=== PATIENT | female | born 1995 | race Caucasian/White ===

== ENCOUNTER 2021-09-04 15:00 | Outpatient (CLI) | payer BC, SELFPAY ==
--- NOTE | ~2021-09-04 | US_ITS ---
EXAMINATION: US OB follow up DATE: 09/04/2021 16:03 INDICATION: Encounter for supervision of normal . TECHNIQUE: Real-time ultrasound of the pelvis was performed. COMPARISON: None. FINDINGS: There is a single living fetus in breech presentation. The placenta is posterior. heart rate i s 141 beats per minute (bpm). The amniotic fluid volume is subjectively normal. The following biometric data were obtained: Biparietal diameter (BPD): 3.3 cm; head circumference (HC): 12.5 cm; abdominal circumference (AC): 10 .5 cm; femur length (FL): 2.1 cm. These measurements are concordant. Estimated weight is 153 g +/- 23 g, which correlates with 15th percentile when 02/13/22 is used as estimated date of delivery. As single measurements, these parameters are each equal to the following estimated gestational ages w ith ranges of +/- 2 standard deviations: BPD: 16 weeks 1 days (15 weeks 0 days - 17 weeks 2 days). HC: 16 weeks 2 days (15 weeks 1 days - 17 weeks 3 days). AC: 16 weeks 3 days (14 weeks 5 days - 18 weeks 0 days). FL: 16 weeks 2 days (14 weeks 6 days - 17 weeks 5 days). estimated gestational age based solely on measurements from this exam is 16 weeks 2 days +/- 1 weeks 1 days. IMPRESSION: 1. Single living fetus in breech presentation. 2. Estimated weight is 153 g +/- 23 g, which correlates with 15th percentile when 02/13/22 is u sed as estimated date of delivery. Reviewed, dictated and finalized at location A. NOLOGY SUPPORT ANALYST IMPRESSION: 1. Single living fetus in breech presentation. 2. Estimated weight is 153 g +/- 23 g, which correlates with 15th percen tile when 02/13/22 is used as estimated date of delivery.
== END 2021-09-04 15:01 | disposition home or self-care (01) ==
LOC: ANHIMG 15:12
PROVIDERS: PCP Obstetrics & Gynecology; Visit Provider Physician Assistant
DX: Z34.92 Encounter for supervision of normal pregnancy, unspecified, second trimester (principal); Z3A.16 16 weeks gestation of pregnancy
CPT/HCPCS: 76816

== ENCOUNTER 2023-12-15 11:59 | Emergency (ER) | payer MEDICAID, SELFPAY ==
--- NOTE | ~2023-12-15 | US_ITS ---
EXAMINATION: US OB <= 14 weeks fetus DATE: 12/15/2023 17:36 INDICATION: Abnormal ultrasound. TECHNIQUE: Real-time transabdominal pelvic ultrasound was performed. COMPARISON: None. FINDINGS: There is an intrauterine gestational sac. The crown rump length measures 6.1 cm, which correla deborah with an estimated gestational age of 12 weeks and 4 day(s) (+/-) 1 week(s) and 1 day(s). he art motion is not identified by M-mode Doppler. The placenta is anterior and likely covers the wildlife biology internship al cervical os. The ovaries are not visualized. There is no free fluid in the pelvis. IMPRESSION: 1. demise. Reviewed, dictated and finalized at location E. CARE CENTER DIRECTOR IMPRESSION: 1. demise.
[2023-12-15 12:21] VITALS: BP 111/60; PULSE 70; RESP 16; TEMP 36.6; O2SAT 100
[2023-12-15 16:02] VITALS: BP 108/55; PULSE 51; RESP 12; TEMP 36.3; O2SAT 100
--- NOTE | 2023-12-15 16:11 | ED.FEMALEGU ---
HPI - Female Genitourinary General Chief complaint: GIS ANALYST DEVELOPER <Oneida Solorzano PA-C - Last Filed: 12/16/23 09:48> Stated complaint: abnormal US- 12wks <Oneida Solorzano PA-C - Last Filed: 12/16/23 09:48> Time Seen by Provider: 12/15/23 16:11 <Oneida Solorzano PA-C - Last Filed: 12/16/23 09:48> Focused HPI: This is a 28 year old , about 12 weeks by LMP that presents to the ER for abnormal US. Reports she was at [facility] and they could not find a heartbeat. She is about 12 weeks currently. Denies pelvic cramping or vaginal bleeding. GENERAL: Well-appearing, well-nourished, and in no acute distress. HEAD: Normocephalic, atraumatic. CHEST: Clear to auscultation. ?No respiratory distress. HEART: Regular rate and rhythm.? NEURO: ?Alert and oriented x3. Patient screened in triage and initial orders placed.? ?Additional care and disposition to be based upon?diagnostic testing and treatment. <Oneida Solorzano PA-C - Last Filed: 12/16/23 09:48> Focused HPI: This is a 28 year old who presents to the ER for abnormal US. Reports she was at [facility] for first US of today and they could not find a heartbeat. She is about 12 weeks currently. LNMP in end of July 2023. Denies pelvic cramping or vaginal bleeding. Denies N/V, fevers, urinary complaints. GENERAL: Well-appearing, well-nourished, and in no acute distress. HEAD: Normocephalic, atraumatic. CHEST: Clear to auscultation. ?No respiratory distress. HEART: Regular rate and rhythm.? NEURO: ?Alert and oriented x3. Patient screened in triage and initial orders placed.? ?Additional care and disposition to be based upon?diagnostic testing and treatment. <GEOFFREY Ramsay Last Filed: 12/15/23 20:41> Source: patient <GEOFFREY Ramsay Last Filed: 12/15/23 20:41> Mode of arrival: ambulatory <Kamilla White PA-C - Last Filed: 12/15/23 20:41> Limitations: no limitations <Kamilla White PA-C - Last Filed: 12/15/23 20:41> Review of Systems Review of Systems: CONSTITUTIONAL: Denies fever, chills, or sweats. CARDIOVASCULAR: Denies chest pain. RESPIRATORY: Denies dyspnea. GASTROINTESTINAL: See HPI GENITOURINARY: Denies dysuria or hematuria. <Kamilla White PA-C - Last Filed: 12/15/23 20:41> All systems reviewed & are unremarkable except as noted in HPI and below <Kamilla White PA-C - Last Filed: 12/15/23 20:41> [facility] Past Medical History Medical History: Medical History (Updated 12/16/23 @ 00:00 by [facility] Aletha) No active medical problems <Oneida Solorzano PA-C - Last Filed: 12/16/23 09:48> Social History Social History: Social History (Updated 12/15/23 @ 16:13 by Oneida Solorzano PA-C) Smoking status: Current every day smoker Tobacco type: e-cigarettes/vaping <Oneida Solorzano PA-C - Last Filed: 12/16/23 09:48> Exam Narrative: GENERAL: Well appearing, obese with BMI of 32.2, non-toxic, in no acute distress. HEAD: Normocephalic, atraumatic. RESPIRATORY: Airway patent, respirations nonlabored. Clear to auscultation bilaterally, no rales, rhonchi, wheezing. CARDIOVASCULAR: Regular rate and rhythm. ABDOMINAL: Soft, nontender. MUSCULOSKELETAL: Moves all extremities. No gross deformities. SKIN: Warm, dry, normal color. NEURO: A&O X3. Speech clear. Cranial nerves II-XII grossly intact. Steady gait. No ataxic movements. PSYCHIATRIC: Tearful, pleasant. Normal interaction. <Kamilla White PA-C - Last Filed: 12/15/23 20:41> Course Vital Signs Vital signs: Vital Signs Temperature 97.9 F 12/15/23 12:21 Pulse Rate 70 12/15/23 12:21 Respiratory Rate 16 12/15/23 12:21 Blood Pressure 111/60 12/15/23 12:21 Pulse Oximetry 100 12/15/23 12:21 Oxygen Delivery Room Air 12/15/23 12:21 Temperature 98.1 F 12/15/23 20:37 Pulse Rate 77 12/15/23 20:37 Respiratory Rate 15 12/15/23 20:37 B
[2023-12-15 17:04] LABS: Basophils Percent Auto 0.4 % (0.2-1.2); Eosinophils Absolute Auto 0.1 K/mm3 (0-0.3); Eosinophils Percent Auto 1.7 % (0-4.4); Hemoglobin 12.7 g/dL (12.0-15.0); Immature Granulocyte Absolute 0.03 K/mm3 (0.00-0.031); Immature Granulocyte Percent A 0.4 % (0-0.5); Lymphocytes Absolute Auto 2.21 K/mm3 (0.9-3.2); Lymphocytes Percent Auto 27.5 % (18.3-44.2); Mean Corpuscular HGB Conc 33.4 g/dl (32-36); Mean Corpuscular Hemoglobin 29.3 pg (26-34); Mean Corpuscular Volume 87.8 fl (80-100); Mean Platelet Volume 12.3 fl (7.4-10.4); Monocytes Absolute Auto 0.4 K/mm3 (0.1-0.6); Monocytes Percent Auto 4.3 % (2.6-8.5); Neutrophils Absolute Auto 5.3 K/mm3 (1.3-6.7); Neutrophils Percent Auto 65.7 % (45.5-73.1); Platelet Count Result 175 k/mm3 (150-375); Red Blood Count 4.33 M/mm3 (4.2-5.4); Red Cell Distribution Width 13.2 % (11.5-14.5); White Blood Count 8.1 K/mm3 (4.5-10.0)
[2023-12-15 17:25] LABS: Alanine Aminotransferase 11 U/L (6-35); Albumin Level 4.3 g/dL (3.5-5.1); Alkaline Phosphatase 77 U/L (38-126); Anion Gap 6 mmol/L (8-16); Aspartate Amino Transferase 17 U/L (14-36); Bilirubin,Total 0.6 mg/dL (0.2-1.3); Blood Urea Nitrogen 4 mg/dL (7-17); Calcium 9.5 mg/dL (8.4-10.2); Carbon Dioxide 23 mmol/L (22-30); Chloride 106 mmol/L (98-107); Estimated CRCL calculation 127 ml/min; Estimated Glomerular Filt Rate > 60; Glucose 98 mg/dL (65-110); Potassium 4.3 mmol/L (3.4-5.0); Sodium 135 mmol/L (137-145)
[2023-12-15 18:35] VITALS: BP 111/73; PULSE 63; RESP 14; O2SAT 100
--- NOTE | 2023-12-15 19:17 | PC.NURSE ---
care and report given to CINDY Hidalgo. all questions answered.
[2023-12-15 20:30] VITALS: BP 107/56; BP 108/69; BP 115/66; PULSE 77; PULSE 80; PULSE 82
[2023-12-15 20:37] VITALS: BP 111/70; PULSE 77; RESP 15; TEMP 36.7; O2SAT 100
== END 2023-12-15 20:38 | disposition home or self-care (01) ==
PROVIDERS: Physician Assistant; Emergency Provider Physician Assistant; PCP Obstetrics & Gynecology
DX: O36.4XX0 Maternal care for intrauterine death, not applicable or unspecified (principal); O99.331 Smoking (tobacco) complicating pregnancy, first trimester; F17.290 Nicotine dependence, other tobacco product, uncomplicated; Z3A.12 12 weeks gestation of pregnancy
CPT/HCPCS: 36415; 76801; 80053; 84702; 85025; 85461; 86850; 86900; 86901; 99284

== ENCOUNTER 2023-12-24 00:47 | Day surgery (SDC) | payer MEDICAID, SELFPAY ==
[2023-12-21 13:11] VITALS: BMI 31.2
--- NOTE | 2023-12-21 13:15 | PC.NURSE ---
Report to the Outpatient Waiting Room, entrance under the green pavilion located off [facility], at time 0700 on date 12/24/23. Planned Procedure Time: 0900. Time changes happen often and if your time is changed the preop area will call you the afternoon before. - You and your visitor will be asked to self-screen and do not enter if you have any COVID symptoms. - A mask is optional within the hospital at this time. Patients may have clear liquids (water, carbonated beverages, clear teas, apple juice) until 3 hours prior to surgery with a maximum of 20 ounces. - No food from midnight until time of surgery Take the following medications with a SIP of water the morning of surgery: N/A DO NOT STOP ANY OF YOUR OTHER PRESCRIPTION MEDICATIONS PRIOR TO SURGERY ?EXCEPT THE FOLLOWING Medications to discontinue per physician: N/A Date to take last dose: N/A Please no make-up, nail bulgarian, hairspray, perfume, deodorant, or body powder the day of surgery. No jewelry (including any body piercings) or valuables the day of surgery, leave them at home. Please take a shower or bath the night before, or the morning of, surgery with an antibacterial soap. Wear comfortable, loose fitting clothing. - Jewelry must be removed prior to entering the operating room. Rings and piercings that are not removed may be cut off. - The hospital will not accept responsibility for valuables. - Please leave all valuables, including medications, at home the day of surgery. If you are going home after surgery, a licensed local hazmat driver must drive you home. - NO public transportation without another adult if you receive anesthesia. - We recommend that an adult stay with you for 24 hours following discharge. - We also recommend that you do not drive, make important decision, drink alcoholic beverages, or take any drugs that were not prescribed by your health care provider for at least 24 hours after your discharge time. Follow any additional instructions given to you from your surgeon. If you or anyone in your household have experienced Covid symptoms in the past week, please notify your surgeon or the nurse liaison at the phone number below for possible testing. Telephone instructions given to PT - RESHMA KING and asked if any additional questions and then verbalized understanding. Patient advised to call surgeon office or pre surgery nurse liaison [phone] if any additional questions.
--- NOTE | 2023-12-24 06:19 | P.PNAN_ITS ---
Anes - Initial Pre Proc Eval Procedure: Operation Date: 12/24/23 07:30 Proposed Procedures p Suction Dilation and Curettage - Derick Chavira MD Date/Time: 12/24/23 06:19 Surgeon: Derick Chavira MD Pre Op Diagnosis: missed AB Patient Data Age: 28 Gender: F Height: 1.52 m Weight: 72.6 kg Allergies Allergy/AdvReac Type Severity Reaction Status Date / Time No Known Allergies Allergy Verified 12/21/23 13:10 Home Medications Medication Instructions Recorded Confirmed Type No Home Medications 12/21/23 12/21/23 History Patient hx anesthesia problems: none Family hx anesthesia problems: none Results Review: All pre-operative results and documents have been reviewed as part of the pre- operative evaluation. [facility] Past Medical History Medical History (Updated 12/24/23 @ 06:19 by Brayan Isbell MD) Anemia Family History Family History Mother Diabetes mellitus Social History Social History Smoking status: Current every day smoker Tobacco type: e-cigarettes/vaping Alcohol intake: never Substance use: current Substance use type: marijuana Other substance usage details: daily Do You Feel Safe in your Home?: Yes Lack of Transportation: No Lack of Food: Never True Current Housing: I Have Housing Concerned About Future Housing: No Difficulty Paying Gas/Electric Bills: No Difficulty Paying for Meds: No Currently Unemployed: No Education: High School Diploma/GED Difficulty w/ Childcare or Family Care: No Living arrangements: with family Additional living arrangements comments: single Occupation/Education: occupation Additional occupation/education comments: [employer] Gender identity (if verbalized by the patient): Female Sexual Orientation (if Verbalized by the Patient): Straight or Heterosexual Spiritual care concerns: No Anes - Eval Final PreProcedure Day of Procedure 12/24/23 06:19 Patient weight: obese Heart: regular rate and rhythm Lungs: clear to auscultation Airway: Mallampati scale class II Neurological: alert and oriented Last oral intake: >/= 8 hours ASA classification: II Emergent: no Anesthetic plan: proceed Anesthesia type and monitoring: general GIVS and standard monitoring Results Review: All pre-operative results and documents have been reviewed as part of the pre- operative evaluation. Informed Consent: The patient's anesthetic plan and its attendant risks and benefits were discussed with the patient/family/POA. Questions were solicited and answers provided to the satisfaction of the patient/family/POA.
[2023-12-24] MEDS: ACETAMINOPHEN 500 MG TABLET 1000 MG PO (07:01)
--- NOTE | 2023-12-24 07:17 | WPDHPUPDATE1 ---
History and Physical Update Update Date/Time: 12/24/23 07:17 History and Physical has been reviewed, including an updated exam of the patient. There are NO changes in the patient's condition. Risks, benefits, and alternatives have been discussed and questions answered. Patient agrees to proceed with procedure.
[2023-12-24 07:30] VITALS: BP 109/52; PULSE 81; RESP 14; TEMP 36.6; O2SAT 100
[2023-12-24] MEDS: LACTATED RINGERS 1,000 ML 30 ML IV CONT (07:30)
[2023-12-24 07:41] VITALS: BMI 32.1
--- NOTE | 2023-12-24 07:50 | W.PM.PROC2 ---
Procedure Note - Detailed Date of Procedure 12/24/23 Pre-op Diagnosis Twelve week missed AB Post-op Diagnosis Same Procedure Performed Suction curettage Surgeon Derick Chavira MD Anesthesia MAC Findings Significant products of conception Description of Procedure Patient prepped and draped in usual manner for this procedure. Cervix was dilated to allow a 12mm curette to be placed. This was placed with significant amount of tissue removed, curetting throughout with no remaining tissue noted, initially fairly significant amount of blood loss but this quickly responded to manual compression as well as further suctioning. Estimated Blood Loss 400 Drains No Packing No Pathology Yes Complications No immediate complications Condition Stable Disposition PACU [facility] Billing Surgery - Charge Forward: Surgery Billing
[2023-12-24 07:53] VITALS: BP 115/76; PULSE 69; RESP 12; O2SAT 100
[2023-12-24 08:15] VITALS: BP 113/76; PULSE 62; RESP 12; O2SAT 100
[2023-12-24 08:45] VITALS: BP 96/50; PULSE 55; RESP 14
[2023-12-24] MEDS: RHO(D) IMMUNE GLOBULIN 300 MCG/2 ML SYRINGE IM (08:45)
[2023-12-24 09:00] VITALS: BP 92/52; PULSE 48; RESP 14
== END 2023-12-24 09:10 | disposition home or self-care (01) ==
PROVIDERS: Visit Provider Obstetrics & Gynecology
PROC: (CPT 59820; principal; 2023-12-24 07:30)
DX: O02.1 Missed abortion (principal); D64.9 Anemia, unspecified; F17.290 Nicotine dependence, other tobacco product, uncomplicated; F12.90 Cannabis use, unspecified, uncomplicated; E66.9 Obesity, unspecified; Z68.32 Body mass index [BMI] 32.0-32.9, adult
CPT/HCPCS: 59820; 36415; 85461; 86850; 86900; 86901; 88305; 90384; A9270; J2250; J2405; J2704; J2790; J3010; J7120